=== PATIENT | female | born 1950 | race Caucasian/White ===

== ENCOUNTER 2018-12-24 12:02 | Outpatient (REF) | payer OTHER, SELFPAY ==
[2018-12-24 21:20] LABS: HCT 40.5 % (36.0-46.0); HGB 13.3 g/dL (12.0-15.5); Mean Corp. HGB Concentration 32.8 g/dL (32.0-36.0); Mean Corpuscular Hemoglobin 30.2 pg (27.0-33.0); Mean Platelet Volume 11.1 fL (8.0-11.0); Platelet Count 284 x1000/uL (130-400); White Blood Cell Count 6.82 k/cumm (4.4-10.8)
[2018-12-24 21:33] LABS: ALT 24 U/L (12-78); AST 14 U/L (15-37); Albumin 3.8 g/dL (3.4-5.0); Alkaline Phosphatase 72 U/L (46-116); Anion Gap 7.1 mmol/L (3-11); BUN 11 mg/dL (7-18); Bilirubin, Total 0.6 mg/dL (0.2-1.0); CO2 31.9 mmol/L (21.0-32.0); CREATININE 0.81 mg/dL (0.55-1.02); Calcium 9.4 mg/dL (8.5-10.1); Calculated LDL 73; Chloride 106 mmol/L (98-107); Cholesterol 151 mg/dL (50-200); Glucose 79 mg/dL (70-100); HDL Cholesterol 54 mg/dL (40-60); Magnesium 1.8 mg/dL (1.8-2.4); Potassium 4.5 mmol/L (3.5-5.1); Sodium 145 mmol/L (136-145); Total Protein 6.8 g/dL (6.4-8.2); Triglyceride 122 mg/dL (30-150)
== END 2018-12-24 12:22 ==
LOC: NCHCN 12:02
PROVIDERS: PCP Family Medicine; Visit Provider Specialist/Technologist Athletic Trainer
DX: I10 Essential (primary) hypertension (principal); E78.2 Mixed hyperlipidemia; E88.81 Metabolic syndrome and other insulin resistance; G47.9 Sleep disorder, unspecified
CPT/HCPCS: 80053; 80061; 83721; 85027; 83735

== ENCOUNTER 2019-07-20 01:21 | Outpatient (CLI) | payer OTHER, SELFPAY ==
--- NOTE | 2019-07-20 10:41 | DI.MAMMO_ITS ---
EXAM: MG MAMMO SCREENING CLINICAL HISTORY: SCREENING, [facility] Z00.00. TECHNIQUE: Full field digital CC and MLO mammographic images were obtained with 3D tomosynthesis and utilizing computer aided detection (CAD). COMPARISON: [id number] FINDINGS: Breast density: B Masses/Architectural Distortion: None seen. Microcalcifications: No suspicious pleomorphic-type calcifications are seen. Skin Thickening/Nipple Retraction: None. Axilla: Unremarkable. IMPRESSION: 1. BI-RADS category 1, negative. No significant interval change with no specific features of maligna ncy noted. 2. Unless there is more urgent need, screening mammography is recommended, as per [place] [employer] guidelines. BI-RADS Cat 1 - Negative Breast Density - Category B - Scattered areas of fibroglandular density A negative radiographic report should not delay biopsy if a dominant or clinically suspicious mass is present. Up to ten percent of cancers are not identified on mammography. A negative report may reinforce clinical impression. Adenosis and dense breasts may obscure an underlying neoplasm. False positive reports average 6 to 10%. Patient will receive a letter notifying them of these results.
== END 2019-07-20 01:41 ==
PROVIDERS: PCP Family Medicine; Visit Provider Specialist/Technologist Athletic Trainer
DX: Z12.31 Encounter for screening mammogram for malignant neoplasm of breast (principal)
CPT/HCPCS: 77063; 77067

== ENCOUNTER 2019-08-12 13:42 | Outpatient (REF) | payer OTHER, SELFPAY ==
[2019-08-12 21:53] LABS: Bacteria Rare HPF (Negative); RBC 0-2 HPF (0-2); WBC 0-2 HPF (0-5)
[2019-08-12 21:54] LABS: C & S Indicated? C&S Done As Ordered
== END 2019-08-12 14:02 ==
LOC: NCHCN 13:42
PROVIDERS: PCP Family Medicine; Visit Provider Specialist/Technologist Athletic Trainer
DX: R41.82 Altered mental status, unspecified (principal)
CPT/HCPCS: 81015; 87086

== ENCOUNTER 2019-12-23 13:01 | Outpatient (REF) | payer OTHER, SELFPAY ==
[2019-12-23 19:39] LABS: Anion Gap 7.7 mmol/L (3-11); BUN 14 mg/dL (7-18); CO2 28.3 mmol/L (21.0-32.0); CREATININE 0.83 mg/dL (0.55-1.02); Calcium 9.5 mg/dL (8.5-10.1); Chloride 106 mmol/L (98-107); Glucose 89 mg/dL (74-106); Potassium 4.7 mmol/L (3.5-5.1); Sodium 142 mmol/L (136-145)
== END 2019-12-23 13:21 ==
LOC: NCHCN 13:01
PROVIDERS: PCP Family Medicine; Visit Provider Nurse Practitioner Family
DX: R73.03 Prediabetes (principal); E88.81 Metabolic syndrome and other insulin resistance
CPT/HCPCS: 80048

== ENCOUNTER 2020-12-18 13:31 | Outpatient (REF) | payer OTHER, SELFPAY ==
[2020-12-18 15:51] LABS: Hemoglobin A1C 5.9 % (<5.7)
[2020-12-18 15:52] LABS: Anion Gap 7.6 mmol/L (3-11); BUN 12 mg/dL (7-18); CO2 29.4 mmol/L (21.0-32.0); CREATININE 0.9 mg/dL (0.55-1.02); Calcium 9.3 mg/dL (8.5-10.1); Calculated LDL 105 mg/dL (<100); Chloride 107 mmol/L (98-107); Cholesterol 202 mg/dL (<200); Glucose 89 mg/dL (74-106); HDL Cholesterol 59 mg/dL (40-60); Potassium 4.5 mmol/L (3.5-5.1); Sodium 144 mmol/L (136-145); Triglyceride 191 mg/dL (<150)
== END 2020-12-18 13:32 | disposition home or self-care (01) ==
LOC: NCHCN 13:31
PROVIDERS: PCP Family Medicine; Visit Provider Nurse Practitioner Family
DX: E78.2 Mixed hyperlipidemia (principal); R73.09 Other abnormal glucose
CPT/HCPCS: 80048; 80061; 83036

== ENCOUNTER 2021-05-28 13:15 | Outpatient (REF) | payer MEDICARE, SELFPAY ==
[2021-05-30 16:43] LABS: COVID-19 RT-PCR UVMMC Result Positive (Negative)
== END 2021-05-28 13:16 | disposition home or self-care (01) ==
LOC: LBN 13:15
PROVIDERS: PCP Family Medicine; Visit Provider Nurse Practitioner Family
DX: Z20.822 Contact with and (suspected) exposure to COVID-19 (principal); J06.9 Acute upper respiratory infection, unspecified
CPT/HCPCS: U0003

== ENCOUNTER → 2021-11-16 01:32 | Outpatient (CLI) | payer MEDICARE, SELFPAY ==
--- NOTE | 2021-11-16 11:00 | DI.DEXA_ITS ---
Exam(s) XR DEXA BONE DENSITY W/WO VINNY EXAM: XR DEXA BONE DENSITY W/WO VINNY CLINICAL HISTORY: OSTEOPENIA, M85.80; POSTMENOPAUSAL, Z78.0 TECHNIQUE: Routine DEXA evaluation of the lumbar spine, hip, or forearm. COMPARISON: Compared to prior DEXA scan 2018 FINDINGS: Performed on a [employer] unit. Lateral image: No compression fracture evident. Lumbar Spine total T-score: -2.3. Prior 2018 reading was -2.2 Hip total T-score:-1.0 . Prior 2018 reading was -0.6 Independent reading at the level of the femoral neck yields at T-score of -1.5. Forearm total T-score: -1.2 IMPRESSION: Bone mineral density measures in the osteopenia range. Fracture risk is moderate. Note: Any spine fracture indicates 5x risk for subsequent spine fracture and 2x risk for subsequent h ip fracture. World Health Organization criteria for BMD interpretation classify patients: Normal...... T- Score at or above -1.0 Osteopenic... T- Score between -1.0 and -2.5 Osteoporosis... T-Score at or below -2.5
--- NOTE | 2021-11-16 11:30 | DI.MAMMO_ITS ---
Exam(s) MAMMO SCREENING EXAM: MAMMO SCREENING CLINICAL HISTORY: SCREENING, Z12.39. TECHNIQUE: Bilateral full field digital CC and MLO mammographic images were obtained with 3D tomosyn thesis and utilizing computer aided detection (CAD). COMPARISON: Prior mammograms were reviewed, the most recent being July 2019. FINDINGS: There has been no significant change in appearance and distribution of the fibroglandular tissue. Benign superficial nodule in the left breast is unchanged from prior studies.. This is most probably a skin mole. There are no new spiculated masses nor malignant appearing microcalcification groups. There is no significant architectural distortion nor skin thickening-retraction. IMPRESSION: No radiographic evidence of malignancy. BI-RADS Category 1 - Negative Breast Density - Category B - Scattered areas of fibroglandular density Breast density Category C or D implies that the patient has dense breast tissue. Dense breast tissue can make it harder to find cancer on a mammogram. Dense breast tissue is also associated with an incr eased risk of breast cancer. This information about the result of the mammogram report was provided to the patient to raise their awareness. Use this report when you speak with the patient about their risks for breast cancer, which includes their family history. At that time, you may recommend additional screening tests (Ultrasoun d or MRI) as these tests may add significant information. A negative radiographic report should not delay biopsy if a dominant or clinically suspicious mass is present. Up to ten percent of cancers are not identified on mammography. A negative report may reinforce clinical impression. Adenosis and dense breasts may obscure an underlying neoplasm. False positive reports average 6 to 10%. Patient will receive a letter notifying them of these results.
== END ==
PROVIDERS: PCP Family Medicine; Visit Provider Nurse Practitioner Family
DX: Z12.31 Encounter for screening mammogram for malignant neoplasm of breast (principal); Z78.0 Asymptomatic menopausal state; M85.88 Other specified disorders of bone density and structure, other site
CPT/HCPCS: 77063; 77067; 77080

== ENCOUNTER 2021-11-22 18:29 | Outpatient (REF) | payer MEDICARE, SELFPAY ==
[2021-11-22 19:28] LABS: BUN 13 mg/dL (7-18); Calcium 8.9 mg/dL (8.5-10.1); Chloride 108 mmol/L (98-107); Estimated GFR 54.35 (mL/min/1.73m2); Glucose 95 mg/dL (74-106); Potassium 4.3 mmol/L (3.5-5.1); Sodium 144 mmol/L (136-145)
[2021-11-22 19:36] LABS: Hemoglobin A1C 5.8 % (<5.7)
== END 2021-11-22 18:30 | disposition home or self-care (01) ==
LOC: NCHCN 18:29
PROVIDERS: PCP Family Medicine; Visit Provider Nurse Practitioner Family
DX: R73.03 Prediabetes (principal); I10 Essential (primary) hypertension
CPT/HCPCS: 80048; 83036

== ENCOUNTER 2022-12-20 12:19 | Outpatient (REF) | payer MEDICARE, SELFPAY ==
[2022-12-20 16:18] LABS: ALT 30 U/L (14-59); AST 19 U/L (15-37); Alkaline Phosphatase 51 U/L (46-116); Anion Gap 5.5 mmol/L (3-11); BUN 16 mg/dL (7-18); Bilirubin, Total 0.6 mg/dL (0.2-1.0); CO2 30.5 mmol/L (21.0-32.0); CREATININE 1.1 mg/dL (0.55-1.02); Calcium 9.8 mg/dL (8.5-10.1); Chloride 105 mmol/L (98-107); Estimated GFR 52.73 (mL/min/1.73m2); Glucose 101 mg/dL (74-106); Potassium 4.6 mmol/L (3.5-5.1); Sodium 141 mmol/L (136-145); Total Protein 7.1 g/dL (6.4-8.2)
== END 2022-12-20 12:20 | disposition home or self-care (01) ==
LOC: NCHCN 12:19
PROVIDERS: PCP Family Medicine; Visit Provider Nurse Practitioner Family
DX: I10 Essential (primary) hypertension (principal); E78.5 Hyperlipidemia, unspecified
CPT/HCPCS: 80053

== ENCOUNTER 2023-01-10 13:56 | Outpatient (REF) | payer MEDICARE, SELFPAY ==
[2023-01-10 16:00] LABS: Anion Gap 9.1 mmol/L (3-11); BUN 14 mg/dL (7-18); CO2 26.9 mmol/L (21.0-32.0); Calcium 9.6 mg/dL (8.5-10.1); Chloride 105 mmol/L (98-107); Estimated GFR 59.12 (mL/min/1.73m2); Glucose 97 mg/dL (74-106); Potassium 4.6 mmol/L (3.5-5.1); Sodium 141 mmol/L (136-145)
== END 2023-01-10 13:57 | disposition home or self-care (01) ==
LOC: NCHCN 13:56
PROVIDERS: PCP Family Medicine; Visit Provider Nurse Practitioner Family
DX: R79.89 Other specified abnormal findings of blood chemistry (principal)
CPT/HCPCS: 80048

== ENCOUNTER 2023-06-26 21:56 | Outpatient (REF) | payer MEDICARE, SELFPAY ==
[2023-06-26 18:07] LABS: Abs Immature Grans 0.03 10^3/uL (0.0-0.06); Absolute Basophil Count 0.06 10^3/uL (0.0-0.2); Absolute Eosinophil Count 0.08 10^3/uL (0.0-0.7); Absolute Lymphocyte Count 1.59 10^3/uL (1.2-3.4); Absolute Monocyte Count 0.46 10^3/uL (0.1-0.8); Absolute Neutrophil Count 4.45 10^3/uL (1.2-6.7); Basophils % 0.9; Eosinophils % 1.2; HCT 41.4 % (36.0-46.0); HGB 13.4 g/dL (11.2-15.7); Immature Grans % 0.4; Lymphocytes % 23.8; MCH 30.1 pg (27.0-33.0); MCHC 32.4 % (32.0-36.0); MCV 93 fL (80-95); MPV 10.5 fL (8.0-11.0); Monocytes % 6.9; Neutrophils % 66.8; Platelet Count 288 10^3/uL (130-400); RBC 4.45 10^6/uL (3.93-5.22); RDW 13.9 % (11.7-14.6); RDW-SD 47.5 fL; WBC 6.67 10^3/uL (4.4-10.8)
[2023-06-26 18:19] LABS: ALT 21 U/L (14-59); AST 13 U/L (15-37); Albumin 3.8 g/dL (3.4-5.0); Alkaline Phosphatase 53 U/L (46-116); Anion Gap 6.9 mmol/L (3-11); BUN 11 mg/dL (7-18); Bilirubin, Total 0.6 mg/dL (0.2-1.0); CO2 30.1 mmol/L (21.0-32.0); CREATININE 0.8 mg/dL (0.55-1.02); Calcium 9.7 mg/dL (8.5-10.1); Calculated LDL 100 mg/dL (<100); Chloride 104 mmol/L (98-107); Cholesterol 191 mg/dL (<200); Estimated GFR 77.27 (mL/min/1.73m2); Glucose 96 mg/dL (74-106); HDL Cholesterol 67 mg/dL (40-60); Potassium 4.5 mmol/L (3.5-5.1); Sodium 141 mmol/L (136-145); Total Protein 6.8 g/dL (6.4-8.2); Triglyceride 124 mg/dL (<150)
[2023-06-26 18:23] LABS: Hemoglobin A1C 5.7 % (<5.7)
== END 2023-06-26 21:57 | disposition home or self-care (01) ==
LOC: NCHCN 21:56
PROVIDERS: PCP Family Medicine; Visit Provider Nurse Practitioner Family
DX: Z13.6 Encounter for screening for cardiovascular disorders (principal); R79.89 Other specified abnormal findings of blood chemistry; Z00.00 Encounter for general adult medical examination without abnormal findings; R73.03 Prediabetes
CPT/HCPCS: 80053; 80061; 83036; 85025

== ENCOUNTER → 2023-11-20 | Outpatient (CLI) | payer MEDICARE, SELFPAY ==
--- NOTE | 2023-11-20 | DI.DEXA_ITS ---
Exam(s) XR DEXA BONE DENSITY W/WO VINNY EXAM: XR DEXA BONE DENSITY W/WO VINNY CLINICAL HISTORY: M81.0 age related ostoeporosis TECHNIQUE: [employer] C densitometer analysis of left hip, lumbar spine and left forearm. Lat eral survey image of the thoracic and lumbar spine. COMPARISON: DX DEXA BONE DENSITY WITH VINNY from 07/31/2015 DX DEXA BONE DENSITY WITH VINNY from 01/01/2018 CR XR DEXA BONE DENSITY W/WO VINNY from 11/16/2021 FINDINGS: Lateral view of the thoracic and lumbar spine shows minimal anterior wedging of T12. Mild compressio n fracture of T7 appears unchanged. Bone mineral density measurements of the lumbar spine correspond to a total T-score of -2.1, in the osteopenic range. This is not significantly changed from prior exams. Bone mineral density measurements of the left hip correspond to a total T-score of -1.8. This repre sents an 11.1 percent decrease compared compared with 2021 and 19.7 percent decrease when compared wi 2015.. The femoral neck T-score is -2.0, in the osteopenic range.. Theleft forearm bone mineral density measurements correspond to a T-score of the distal 3rd of -1.5. This is unchanged from 2021 but represents a 9 percent decrease from 2016.. IMPRESSION: Osteopenia of the lumbar spine, hip and forearm.
--- NOTE | 2023-11-20 | DI.MAMMO_ITS ---
Exam(s) MAMMO SCREENING EXAM: MAMMO SCREENING CLINICAL HISTORY: Z12.31 screening TECHNIQUE: Bilateral full field digital CC and MLO mammographic images were obtained with 3D tomosyn thesis and utilizing computer aided detection (CAD). COMPARISON: Available for comparison. FINDINGS: Masses/Architectural Distortion: None seen. Microcalcifications: No suspicious pleomorphic-type are seen. Skin Thickening/Nipple Retraction: None. IMPRESSION: 1. No significant interval change with no specific features of malignancy noted. 2. Unless there is more urgent need, screening mammography is recommended, as per [place] [employer] guidelines. BI-RADS Category 1 - Negative Breast Density - Category B - Scattered areas of fibroglandular density Breast density category C or D implies that the patient has dense breast tissue. Dense breast tissue is very common and is not abnormal but dense breast tissue can make it harder to find cancer on a ma mmogram. Also, dense breast tissue may increase their breast cancer risk. This information about the result of the mammogram report was provided to the patient to raise their awareness. Use this report when you speak with the patient about their risks for breast cancer, which includes their family hist ory. At that time, you may recommend for more screening tests (Ultrasound or MRI) as they might be us eful based on their risk. A negative radiographic report should not delay biopsy if a dominant or clinically suspicious mass is present. Up to ten percent of cancers are not identified on mammography. A negative report may reinforce clinical impression. Adenosis and dense breasts may obscure an underlying neoplasm. False positive reports average 6 to 10%. Patient will receive a letter notifying them of these results.
== END ==
PROVIDERS: PCP Family Medicine; Visit Provider Nurse Practitioner Family
DX: M81.0 Age-related osteoporosis without current pathological fracture (principal); Z12.31 Encounter for screening mammogram for malignant neoplasm of breast; Z13.820 Encounter for screening for osteoporosis
CPT/HCPCS: 77063; 77067; 77080

== ENCOUNTER 2024-06-28 13:49 | Outpatient (REF) | payer MEDICARE, SELFPAY ==
--- OUTSIDE RECORDS SUMMARY | 2024-06-28 13:51 | XMS_ITS | Encounter Summary ---
Author Organization [facility] Address [facility] [place] [address] Care Team Providers Care Cement Block Maker Name Role Phone Unavailable Primary Care Provider Unavailabl e Reason for Visit * Reason Comments Posterior Capsule Opacification * Consultation (Routine) - Pending Review Specialty Diagnoses / Procedures Referred By Abundio ruffin Referred To Contact Ophthalmology Diagnoses YAG OD Bladimirjulio Greg R, OD [address] [place] [address] Allen Tavarez MD [facility] [place] [address] Referral ID Status Reason Start Date Expiration Date Visits Requested Visits Authorized [id number] Pending Review Consult, Test & Treat 11/18/2023 11/17/2024 1 1 Encounter Details Date Type Department Care Team (Late st Contact Info) Description 04/05/2024 3:00 PM EDT [place] [address] Allen Tavarez MD [facility] [place] [address] S/P YAG capsulotomy, right; Pseudophakia of both eyes Social History Tobacco Use Types Packs/Day Years Used Date Smoking Tobacco: Never Smokeless Tobacco: Never Sex and Gender Information Value Date Recorded Sex Assigned at Not on file Gender Identity Not on file Sexual Orientation Not on file documented as of this encounter Progress Notes * Allen Tavarez MD - 04/05/2024 3:00 PM EDT Assessment/Plan: Jyoti Chen is a 73 y.o. female with the following ophthalmic issues: 1. 1 week s/p YAG cap OD, doing well, 20/20 2. PCIOL OU 3. COAG, good IOP on timolol Managed by Dr. Singh 4. Myopia/astigmatism/presby Continuing care with Dr. Singh - appointment in May documented in this encounter Plan of Treatment Not on file documented as of this encounter Visit Diagnoses Diagnosis S/P YAG capsulotomy, right Pseudophakia of both eyes Lens replaced by other means documented in this encounter
--- OUTSIDE RECORDS SUMMARY | 2024-06-28 13:51 | XMS_ITS | Referral Summary ---
Author Organization [facility] Address [address] [place] [address] Care Team Providers Care Rug Designer Name Role Phone Unavailable Primary Care Provider Unavailabl e Social History Tobacco Use Types Packs/Day Years Used Date Smoking Tobacco: Never Assessed Comments Unknown Sex and Gender Information Value Date Recorded Sex Assigned at Not on file Legal Sex Female 12:27 EST Gender Identity Not on file Sexual Orientation Not on file Plan of Treatment Not on file
--- OUTSIDE RECORDS SUMMARY | 2024-06-28 13:51 | XMS_ITS | Continuity of Care Document ---
Author Organization [facility] Address [address] [place] [address] Care Team Providers Care Magneto Repairer Name Role Phone LINDSEY MARTINEZ Primary Care Physic misty Encounter LTTL_OR FIN NBR [id number] Date(s): 06/30/23 - 06/30/23 [facility] [address] [place] [address]- Discharge Disposition: Home or Self Care Attending Physician: LINDSEY MARTINEZ Admitting Physician: LINDSEY MARTINEZ Referring Physician: LINDSEY MARTINEZ Results Radiology Reports * Exam Date Time Procedure Performing Provider Status 06/30/23 9:25 AM US Lower Ext Venous Duplex Left DomainUser, Generated; Auth (Verified) Notes: (US Lower Ext Venous Duplex Left) Reason For Exam: DVT US Lower Ext Venous Duplex Left EXAM DESCRIPTION: US Lower Ext Venous Duplex Left 06/30/2023 INDICATION: DVT TECHNIQUE: Static images of real-time sonography utilizing B-mode and color Doppler with spectral waveform analysis of the left lower extremity deep venous system was performed. COMPARISON: None FINDINGS: Left common femoral vein, saphenous junction, femoral vein, popliteal vein as well as visualized posterior tibial and peroneal veins demonstrate normal compressibility, color flow and augmentation with no evidence of DVT Ovoid intermediate echogenicity lesion in the lateral popliteal fossa region measuring approximately 3.5 x 1.1 cm of uncertain etiology. This may reflect small focal area of muscle edema in the setting of muscle injury or small intramuscular hematoma. Neoplastic lesion cannot be fully excluded. IMPRESSION: No evidence of left lower extremity DVT. Ovoid intermediate echogenicity lesion in the lateral popliteal fossa region measuring 3.5 x 1.1 cm with diagnostic possibilities as detailed above. JOB #: [id number] Final Signed by: Price Campbell MD Signed (Electronic Signature): 06/30/2023 9:37 am Patient Care team information Care Team Personnel Name: ANSONLINDSEY JHA Position: No Access Member Role: Primary Care Physician Address: Address: [address] [place] [address]- Care Team Related Persons Name: MAIRA CAMACHO
--- OUTSIDE RECORDS SUMMARY | 2024-06-28 13:51 | XMS_ITS | Encounter Summary ---
[place] [address] Care Team Providers Care Plug Machine Operator Name Role Phone Unavailable Primary Care Provider Unavailabl e Encounter Details Date Type Department Care Team (Latest Contact Info) Description 04/05/2024 Travel Social History Tobacco Use Types Packs/Day Years Used Date Smoking Tobacco: Never Smokeless Tobacco: Never Sex and Gender Information Value Date Recorded Sex Assigned at Not on file Gender Identity Not on file Sexual Orientation Not on file documented as of this encounter Plan of Treatment Not on file documented as of this encounter Visit Diagnoses Not on filedocumented in this encounter
--- OUTSIDE RECORDS SUMMARY | 2024-06-28 13:51 | XMS_ITS | Encounter Summary ---
Author Organization [facility] [place] [address] Care Team Providers Care Learning Technologist Name Role Phone Unavailable Primary Care Provider Unavailabl e Reason for Visit * Reason Onset Date Comments Procedure 03/29/2024 Encounter Details Date Type Department Care Team (Latest Contact Info) Description 03/29/2024 9:45 AM EDT Procedure visit Ophthalmology at [facility] [place] [address] Emeli Tavarez MD [facility] [place] [address] PCO (posterior capsular opacification), right Social History Tobacco Use Types Packs/Day Years Used Date Smoking Tobacco: Never Smokeless Tobacco: Never Tobacco Cessation:Counseling Given: Not Answered Sex and Gender Information Value Date Recorded Sex Assigned at Not on file Gender Identity Not on file Sexual Orientation Not on file documented as of this encounter Progress Notes * Emeli Tavarez MD - 03/29/2024 9:45 AM EDT Please see procedure note for details. EMELI TAVAREZ MD documented in this encounter Plan of Treatment Not on file documented as of this encounter Procedures Procedure Name Priority Date/Time Associated Diagnosis Comments CAPSULOTOMY-YAG LASER - OD - RIGHT EYE Routine 03/29/2024 12:38 PM EDT PCO (posterior capsular opacification), right documented in this encounter Results * Capsulotomy-YAG Laser - OD - Right Eye (03/29/2024 12:38 PM EDT) Anatomical Region Laterality Modality Other Narrative 03/29/2024 12:38 PM EDT Pre-Op Patient understands the risks and benefits of the treatment as outlined on the consent. Anesthesia No anesthesia was used. Anesthesia medications included Iopidine 0.5%, Phenylephrine HCL 2.5%, Tropicamide 1%. Laser Information The type of laser was yag. Color was n/a. Total spots was 24. The energy was 3.4 mj. Post-op The patient tolerated the procedure well. There were no complications. The patient received written and verbal post procedure care education. Notes Procedure: ?YAG Capsulotomy ??right eye Diagnosis: ?? Opacified posterior lens capsule Date of cataract surgery: ??2012 Location of procedure: [facility] Surgeon: ?Emeli Tavarez MD Pre-procedure drops: ??0.5% Iopidine, prednisolone 1% Post-procedure drops: 0.5% Iopidine, prednisolone 1% Indication: The patient is status post cataract surgery in the right eye and developed posterior capsular opacity limiting their vision and producing glare. ??The decision was made to try to improve their vision with YAG capsulotomy. ??We discussed the risks, benefits and alternatives to this treatment, answered Jyoti's questions and she signed the consent form. Procedure: ??The operative eye was marked. The patient was taken to the laser room. A posterior capsulotomy was performed in a cross pattern. Jyoti tolerated the procedure well and no problems were observed during the procedure. Number of pulses: ?? 24 Energy per pulse: ?? 3.4 millijoules Post Op Exam: The IOL was stable, the retina was attached and there was mild anterior chamber inflammation. Post operative instructions: ?? 1. Prednisolone acetate drops 4 times a day for 4 days in the operative eye. ?? 2. Return for follow up visit within 1 month 3. Call with any problems, particularly flashes, floaters, pain, decreased vision or photophobia. Emeli Tavarez MD OPHTHALMOLOGY SERVIC ES ORDERABLES documented in this encounter Visit Diagnoses Diagnosis PCO (posterior capsular opacification), right After-cataract, unspecified documented in this encounter
--- OUTSIDE RECORDS SUMMARY | 2024-06-28 13:51 | XMS_ITS | Encounter Summary ---
Author Organization [facility] Address [address] [place] [address] Care Team Providers Care Natural Gas Plant Supervisor Name Role Phone Unavailable Primary Care Provider Unavailabl e Encounter Details Date Type Department Care Team (Late st Contact Info) Description 05/29/2021 Lab Requisition [facility] Pathology & Laboratory Medicine - [facility] [address] [place] [address] Outr Resulting Lab, Provider Social History Tobacco Use Types Packs/Day Years [...] Procedure Name Priority Date/Time Associated Diagnosis Comments ZZCOVID-19 TEST [facility] PCR Today 05/28/2021 12:10 EST COVID-19 TESTING Routine 05/28/2021 12:1 0 EST documented in this encounter Results * COVID-19 TEST [facility] PCR (05/28/2021 12:10 EST) Swab 05/28/2021 12:1 0 EST 05/29/2021 16:26 EST us Provider Outr Resulting Lab MICROBIOLOGY - GENER AL ORDERABLES Final Result [facility] [address] [place] [address] * (ABNORMAL) COVID-19 TESTING (05/28/2021 12:10 EST) COVID-19 rt-PCR Result Positive( AA) Negative 05/30/2021 12:47 EST [facility] Comment: This test has not been FDA cleared or approved. This test has been authorized by FDA under an EUA for use by authorized laboratories. This test has been authorized only for detection of nucleic acid from 2019-nCoV, not for any other viruses or pathogens. This test is only authorized for the duration of the declaration that circumstances exist justifying the authorization of emergency use of in vitro diagnostic tests for detection and/or diagnosis of 2019-nCoV under section 564(b)(1) of Act, 21 U.S.C ?? 360bbb-3(b) (1), unless the authorization is terminated or revoked sooner. Testing was performed using the osorio SARS-CoV-2 assay ([employer] on the Osorio 6800 System Performing Lab Osorio [address] [facility] 05/30/2021 12:47 EST [facility] Swab 05/28/2021 12:1 0 EST 05/29/2021 16:26 EST us Provider Outr Resulting Lab MICROBIOLOGY - GENER AL ORDERABLES Final Result [facility] [address] [place] [address] documented in this encounter Visit Diagnoses Not on filedocumented in this encounter Additional Health Concerns Infection Onset Date Last Indicated Resolved Time COVID-19 05/28/2021 05/28/2021 06/17/2021 22:1 5 EST documented as of this encounter
--- OUTSIDE RECORDS SUMMARY | 2024-06-28 13:51 | XMS_ITS | Clinical Summary ---
Author Organization [facility] Address [facility] [place] [address] Care Team Providers Care Consulting Practice Manager Name Role Phone Unavailable Primary Care Provider Unavailabl e Allergies Active Allergy Reactions Criticality Noted Date Comments Lorazepam Rash Low 03/29/2024 2016 Codeine Sulfate Rash Low 03/29/2024 2016 Phenytoin Rash Low 03/29/2024 2016 Erythromycin Base Nausea And Vomiting Low 2016 Lovastatin Rash Medium 03/29/2024 2016 Morphine Sulfate Nausea And Vomiting Low 03/29/2024 2016 Naproxen Hives,Rash Medium 03/29/2024 Sulfadiazine Nausea Only Low 03/29/2024 Trazodone Other (See Comments) Medium 03/29/20242021 Medications Medication Sig Dispensed Refills Start Date End Date Status timoloL (Timoptic) 0.25 % Drops Place 1 drop into both eyes daily. Active ramipriL (Altace) 5 mg capsule 01/15/2024 Active simvastatin (Zocor) 40 mg tablet 03/04/2024 Active timoloL (Timoptic) 0.5 % Drops 01/15/2024 Active ascorbic acid, vitamin C, (Vitamin C) 1,000 mg tablet Take 1,000 mg by mouth daily. Active multivitamin (THERAGRAN) Tablet Take 1 tablet by mouth daily. Active magnesium glycinate 100 mg magnesium Capsule Take by mouth. Active diclofenac (Voltaren) 1 % Gel Apply topically. 3% Active flaxseed oiL 1,000 mg Capsule Take 1,200 mg by mouth. Active Active Problems No known active problems Encounters Date Type Department Care Team Description 04/05/2024 3:00 PM EDT Office [place] [address] Allen Tavarez MD S/P YAG capsulotomy, right; Pseudophakia of both eyes 04/05/2024 Travel 03/29/2024 9:45 AM EDT Procedure [place] [address] Allen Tavarez MD PCO (posterior capsular opacification), right 03/29/2024 9:00 AM EDT [place] [address] Allen Tavarez MD Right posterior capsular opacification; Pseudophakia of both eyes; Myopia of both eyes with astigmatism and presbyopia; Status post YAG capsulotomy, unspecified laterality 03/29/2024 Travel from Last 3 Months Social History Tobacco Use Types Packs/Day Years Used Date Smoking Tobacco: Never Smokeless Tobacco: Never Tobacco Cessation:Counseling Given: Not Answered Sex and Gender Information Value Date Recorded Sex Assigned at Not on file Gender Identity Not on file Sexual Orientation Not on file Plan of Treatment Health Maintenance Due Date Last Done Comments CT Colonography 1948 Colonoscopy 1948 Colorectal Cancer Screening 1948 FIT DNA 1948 FIT 1948 Sigmoidoscopy (10 year) with FIT yearly 1948 Sigmoidoscopy 1948 Hepatitis C Screening 1966 Tetanus/Diphtheria/Pertussis Vaccines (1 - Tdap) 11/05 Zoster vaccine (1 of 2) 1998 Bone Density Scan 2013 Pneumoccocal Vaccine: 65+ (1 of 1 - PCV) 2013 RSV Vaccine (1 - 1-dose 75+ series) 11/06/2023 Covid-19 Vaccine (1 - season) 2024 Influenza (Flu) vaccine (1 o f 1 - Influenza standard series) 03/14/2024 Procedures Procedure Name Priority Date/Time Associated Diagnosis Comments CAPSULOTOMY-YAG LASER - OD - RIGHT EYE Routine 03/29/2024 12:38 PM EDT PCO (posterior capsular opacification), right from Last 3 Months Results * Capsulotomy-YAG Laser - OD - [...] Location of procedure: [facility] Surgeon: ?Allen Tavarez MD Pre-procedure drops: ??0.5% Iopidine, prednisolone [...] flashes, floaters, pain, decreased vision or photophobia. Allen Tavarez MD OPHTHALMOLOGY SERVIC ES ORDERABLES from Last 3 Months Advance Directives Documents on File Type Date Recorded Patient Drill Sharpener Expl anation Advance Directives and Magalys lim Will 02/09/2024 10:22 AM
--- OUTSIDE RECORDS SUMMARY | 2024-06-28 13:51 | XMS_ITS | Encounter Summary ---
Author Organization [facility] Address [facility] [place] [address] Care Team Providers Care Van Helper Name Role Phone Unavailable Primary Care Provider Unavailabl e Reason for Visit * Reason Comments Blurred Vision * Consultation (Routine) - Pending Review Specialty Diagnoses / Procedures Referred By Abundio ruffin Referred To Contact Ophthalmology Diagnoses YAG OD Samantha Greg Hawk, OD [address] [place] [address] [facility] [place] [address] Referral ID Status Reason Start Date Expiration Date Visits Requested Visits Authorized [id number] Pending Review Consult, Test & Treat 11/18/2023 11/17/2024 1 1 Encounter Details Date Type Department Care Team (Late st Contact Info) Description 03/29/2024 9:00 AM EDT Office [place] [address] [facility] [place] [address] Right posterior capsular opacification; Pseudophakia of both eyes; Myopia of both eyes with astigmatism and presbyopia; Status post YAG capsulotomy, unspecified laterality Social History Tobacco Use Types Packs/Day Years Used Date Smoking Tobacco: Never Smokeless Tobacco: Never Sex and Gender Information Value Date Recorded Sex Assigned at Not on file Gender Identity Not on file Sexual Orientation Not on file documented as of this encounter Progress Notes * Eemli Tavarez MD - 03/29/2024 9:00 AM EDT Assessment/Plan: Jyoti Chen is a 73 y.o. female with the following ophthalmic issues: 1. 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 PCIOL OU 3. COAG, good IOP on timolol Managed by Dr. Singh 4. Myopia/astigmatism/presby Discussed YAG capsulotomy, process, recovery, Risks/Benefits/Alternatives, and the option of waiting. AAO Posterior Capsulotomy pamphlet given to patient. Reviewed the chance of WORSE vision, damage to the eye, inflammation, retinal tear and other problems possible. Questions answered. Jyoti Millerpresses understanding, requests YAG capsulotomy OD. Informed consent form signed. Jyoti Chen informed of opportunity to retain a copy of Consent Form. documented in this encounter Miscellaneous Notes * Addendum Note - Emeli Tavarez MD - 03/29/2024 9:00 AM EDTAddended by: EMELI TAVAREZ on: 03/29/2024 10:39 AM Modules accepted: Orders documented in this encounter Plan of Treatment Not on file documented as of this encounter Visit Diagnoses Diagnosis Right posterior capsular opacification After-cataract, unspecified Pseudophakia of both eyes Lens replaced by other means Myopia of both eyes with astigmatism and presbyopia Status post YAG capsulotomy, unspecified laterality documented in this encounter
--- OUTSIDE RECORDS SUMMARY | 2024-06-28 13:51 | XMS_ITS | Encounter Summary ---
[place] [address] Care Team Providers Care Firer Kiln Name Role Phone Unavailable Primary Care Provider Unavailabl e Encounter Details Date Type Department Care Team (Latest Contact Info) Description 03/29/2024 Travel Social History Tobacco Use Types Packs/Day [...]
--- OUTSIDE RECORDS SUMMARY | 2024-06-28 13:51 | XMS_ITS | Clinical Summary ---
Author Organization [facility] Address [address] [place] [address] Care Team Providers Care Loom Inspector Name Role Phone Unavailable Primary Care Provider Unavailabl e Social History Tobacco Use Types Packs/Day Years Used Date Smoking Tobacco: Never Assessed Comments Unknown Sex and Gender Information Value Date Recorded Sex Assigned at Not on file Legal Sex Female 12:27 EST Gender Identity Not on file Sexual Orientation Not on file Plan of Treatment Health Maintenance Due Date Last Done Comments Hepatitis C Screen 1950 Fall Risk Screening 2013 RSV Immunization ( o r 60+ Years) (1 - 1-dose 75+ series) 11/06/2023 COVID-19 Vaccine (2023- season) 2024
[2024-06-28 15:53] LABS: ALT 26 U/L (14-59); AST 18 U/L (15-37); Alkaline Phosphatase 78 U/L (46-116); Anion Gap 9.2 mmol/L (3-11); BUN 11 mg/dL (7-18); Bilirubin, Total 0.69 mg/dL (0.2-1.0); CO2 28.8 mmol/L (21.0-32.0); Calcium 9.6 mg/dL (8.5-10.1); Chloride 109 mmol/L (98-107); Estimated GFR 58.75 (mL/min/1.73m2); Glucose 88 mg/dL (74-106); Potassium 4.4 mmol/L (3.5-5.1); Sodium 147 mmol/L (136-145); Total Protein 7.1 g/dL (6.4-8.2)
[2024-06-28 16:15] LABS: Hemoglobin A1C 5.7 % (<5.7)
== END 2024-06-28 13:50 | disposition home or self-care (01) ==
LOC: NCHCN 13:49
PROVIDERS: PCP Nurse Practitioner Family; Visit Provider Nurse Practitioner Family
DX: R73.03 Prediabetes (principal); E78.2 Mixed hyperlipidemia; G47.9 Sleep disorder, unspecified
CPT/HCPCS: 80053; 83036; 83735

== ENCOUNTER 2024-07-09 10:55 | Outpatient (REF) | payer MEDICARE, SELFPAY ==
--- OUTSIDE RECORDS SUMMARY | 2024-07-09 10:57 | XMS_ITS | Encounter Summary ---
Author Organization [facility] [place] [address] Care Team Providers Care Forming Process Worker Name Role Phone Unavailable Primary Care Provider Unavailabl e Reason for Visit * Reason Onset Date Comments Procedure 03/29/2024 Encounter Details Date Type Department Care Team (Latest Contact Info) Description 03/29/2024 9:45 AM EDT Procedure visit Ophthalmology at [facility] [place] [place] [address] Emeli Tavarez MD [facility] [address] [place] [address] PCO (posterior capsular opacification), right Social History [...]
--- OUTSIDE RECORDS SUMMARY | 2024-07-09 10:57 | XMS_ITS | Referral Summary ---
Author Organization [facility] Address [address] [place] [address] Care Team Providers Care Match Up Person Name Role Phone Unavailable Primary Care Provider [...]
--- OUTSIDE RECORDS SUMMARY | 2024-07-09 10:57 | XMS_ITS | Encounter Summary ---
Author Organization [facility] Address [facility] [place] [address] Care Team Providers Care Architectural Sales Consultant Name Role Phone Unavailable Primary Care Provider Unavailabl e Reason for Visit * Reason Comments Blurred Vision * Consultation (Routine) - Pending Review Specialty Diagnoses / Procedures Referred By Abundio ruffin Referred To Contact Ophthalmology Diagnoses YAG OD Samantha Greg Hawk, OD [address] [place] [address] Emeli Tavarez MD [facility] [place] [address] Referral ID Status Reason Start Date Expiration Date Visits Requested Visits Authorized [id number] Pending Review Consult, Test & Treat 11/18/2023 11/17/2024 1 1 Encounter Details Date Type Department Care Team (Late st Contact Info) Description 03/29/2024 9:00 AM EDT Office [place] [address] Emeli Tavarez MD [facility] [place] [address] Right posterior capsular opacification; Pseudophakia of both [...] Notes * Emeli Tavarez MD - 03/29/2024 9:00 AM EDT [...]
--- OUTSIDE RECORDS SUMMARY | 2024-07-09 10:57 | XMS_ITS | Encounter Summary ---
[place] [address] Care Team Providers Care Entertainment Musician Name Role Phone Unavailable Primary Care Provider [...]
--- OUTSIDE RECORDS SUMMARY | 2024-07-09 10:57 | XMS_ITS | Clinical Summary ---
Author Organization [facility] Address [address] [place] [address] Care Team Providers Care Adobe Cq Developer Name Role Phone Unavailable Primary Care Provider [...]
--- OUTSIDE RECORDS SUMMARY | 2024-07-09 10:57 | XMS_ITS | Clinical Summary ---
Author Organization [facility] Address [facility] [place] [address] Care Team Providers Care Delinquent Notice Machine Operator Name Role Phone Unavailable Primary [...] Active Active Problems No known active problems Social History Tobacco Use Types Packs/Day Years [...] 1966 Tetanus/Diphtheria/Pertussis Vaccines (1 - Tdap) 11/05 Pneumoccocal Vaccine: 65+ (1 of 1 - PCV) 1998 Zoster vaccine (1 of 2) 1998 Bone Density Scan 2013 RSV Vaccine (1 - 1-dose 75+ series) 11/06/2023 Covid-19 Vaccine (1 - 2023- season) 2024 Influenza (Flu) vaccine (1 o f 1 - Influenza standard series) 03/14/2024 Advance Directives Documents on File Type Date Recorded Patient Senior Java Web Developer Expl anation Advance Directives and Magalys lim Will 02/09/2024 10:22 AM
--- OUTSIDE RECORDS SUMMARY | 2024-07-09 10:57 | XMS_ITS | Encounter Summary ---
[place] [address] Care Team Providers Care Miniature Set Designer Name Role Phone Unavailable Primary Care [...]
--- OUTSIDE RECORDS SUMMARY | 2024-07-09 10:57 | XMS_ITS | Encounter Summary ---
Author Organization [facility] Address [address] [place] [address] Care Team Providers Care Co Founder And Chief Strategy Officer Name Role Phone Unavailable Primary Care Provider Unavailabl e Encounter Details Date Type Department Care Team (Late st Contact Info) Description 05/29/2021 Lab Requisition [facility] Pathology & Laboratory Medicine - [facility] [address] [place] [address] Outr Resulting Lab, Provider Social History Tobacco [...] Priority Date/Time Associated Diagnosis Comments ZZCOVID-19 TEST [facility] PCR Today 05/28/2021 12:10 EST COVID-19 TESTING Routine 05/28/2021 12:1 0 EST documented in this encounter Results * COVID-19 TEST [facility] PCR (05/28/2021 12:10 EST) Swab 05/28/2021 12:1 0 EST 05/29/2021 16:26 EST us Provider Outr Resulting Lab MICROBIOLOGY - GENER AL ORDERABLES Final Result [facility] [address] [place] [address] * (ABNORMAL) COVID-19 TESTING (05/28/2021 12:10 EST) COVID-19 rt-PCR Result Positive( AA) Negative 05/30/2021 12:47 EST [facility] Comment: This test has not [...] performed using the osorio SARS-CoV-2 assay ([employer] on the Osorio 6800 System Performing Lab Osorio [address] [facility] 05/30/2021 12:47 EST [facility] Swab 05/28/2021 12:1 0 EST 05/29/2021 16:26 EST us Provider Outr Resulting Lab MICROBIOLOGY - GENER AL ORDERABLES Final Result [facility] [address] [place] [address] documented in this encounter Visit Diagnoses Not on filedocumented in this encounter Additional Health Concerns Infection Onset Date Last Indicated Resolved Time COVID-19 05/28/2021 05/28/2021 06/17/2021 22:1 5 EST documented as of this encounter
--- OUTSIDE RECORDS SUMMARY | 2024-07-09 10:57 | XMS_ITS | Encounter Summary ---
Author Organization [facility] Address [facility] [place] [address] Care Team Providers Care Valve Tester Name Role Phone Unavailable Primary Care Provider Unavailabl e Reason for Visit * Reason Comments Posterior Capsule Opacification * Consultation (Routine) - Pending Review Specialty Diagnoses / Procedures Referred By Abundio ruffin Referred To Contact Ophthalmology Diagnoses YAG OD Bladimirjulio Greg R, OD [address] [place] [address] Allen Tavarez MD [facility] [place] [address] Referral ID Status Reason Start Date Expiration Date Visits Requested Visits Authorized [id number] Pending Review Consult, Test & Treat 11/18/2023 11/17/2024 1 1 Encounter Details Date Type Department Care Team (Late st Contact Info) Description 04/05/2024 3:00 PM EDT Office [place] [address] Allen Tavarez MD [facility] [place] [address] S/P YAG capsulotomy, right; Pseudophakia of both [...]
[2024-07-09 15:39] LABS: BUN 12 mg/dL (7-18); CREATININE 0.9 mg/dL (0.55-1.02); Calcium 9.2 mg/dL (8.5-10.1); Chloride 109 mmol/L (98-107); Estimated GFR 66.67 (mL/min/1.73m2); Glucose 84 mg/dL (74-106); Potassium 4.3 mmol/L (3.5-5.1); Sodium 146 mmol/L (136-145)
== END 2024-07-09 10:56 | disposition home or self-care (01) ==
LOC: NCHCN 10:55
PROVIDERS: PCP Nurse Practitioner Family; Visit Provider Nurse Practitioner Family
DX: E87.0 Hyperosmolality and hypernatremia (principal)
CPT/HCPCS: 80048

== ENCOUNTER 2024-12-27 18:31 | Outpatient (REF) | payer MEDICARE, SELFPAY ==
[2024-12-27 16:39] LABS: Anion Gap 8.7 mmol/L (3-11); BUN 19 mg/dL (7-18); CO2 28.3 mmol/L (21.0-32.0); CREATININE 0.8 mg/dL (0.55-1.02); Calcium 9.8 mg/dL (8.5-10.1); Chloride 106 mmol/L (98-107); Estimated GFR 76.31 (mL/min/1.73m2); Glucose 110 mg/dL (74-106); Potassium 4.1 mmol/L (3.5-5.1); Sodium 143 mmol/L (136-145)
== END 2024-12-27 18:32 | disposition home or self-care (01) ==
LOC: NCHCN 18:31
PROVIDERS: PCP Nurse Practitioner Family; Visit Provider Nurse Practitioner Family
DX: R79.0 Abnormal level of blood mineral (principal)
CPT/HCPCS: 80048

== ENCOUNTER 2025-06-30 18:35 | Outpatient (REF) | payer MEDICARE, SELFPAY ==
[2025-06-30 19:39] LABS: Hemoglobin A1C 5.5 % (<5.7)
[2025-06-30 19:45] LABS: ALT 21 U/L (10-49); AST 22 U/L (<34); Albumin 4.2 g/dL (3.2-5.0); Alkaline Phosphatase 67 U/L (46-116); Anion Gap 9.6 mmol/L (3-11); BUN 13 mg/dL (9-23); Bilirubin, Total 0.4 mg/dL (0.2-1.2); CO2 28.4 mmol/L (20.0-31.0); Calcium 9.4 mg/dL (8.3-10.6); Chloride 106 mmol/L (98-107); Glucose 77 mg/dL (74-106); Potassium 4.1 mmol/L (3.5-5.1); Sodium 144 mmol/L (136-145); Total Protein 6.7 g/dL (5.7-8.2)
[2025-07-01 18:15] LABS: Hepatitis C Ab w Rflx HCV PCR Negative (Negative)
== END 2025-06-30 18:36 | disposition home or self-care (01) ==
LOC: NCHCN 18:35
PROVIDERS: PCP Nurse Practitioner Family; Visit Provider Nurse Practitioner Family
DX: R73.03 Prediabetes (principal); E78.2 Mixed hyperlipidemia; Z00.00 Encounter for general adult medical examination without abnormal findings
CPT/HCPCS: 80053; 86803; 83036